=== PATIENT | male | born 1985 | race Caucasian/White ===

== ENCOUNTER 2022-09-29 15:24 | Outpatient (CLI) | payer OTHER, SELFPAY ==
[2022-09-29 17:32] LABS: Albumin* 4.7 g/dL (3.3-5.0); Chloride* 107 mmol/L (96-114)
[2022-09-29 17:33] LABS: Potassium* 4.4 mmol/L (3.6-5.1); Sodium* 142 mmol/L (135-149)
[2022-09-29 17:35] LABS: Alkaline Phosphatase* 66 U/L (40-150); Aspartate Amino Transferase* 32 U/L (12-35); Bilirubin Total* 0.5 mg/dL (0.1-1.5); Carbon Dioxide* 26 mmol/L (20-32); Creatinine* 0.8 mg/dL (0.5-1.5); Estimated Glomerular Filt Rate 116 ml/min; Total Protein* 7.5 g/dL (6.0-8.3)
[2022-09-29 17:36] LABS: Alanine Aminotransferase* 41 U/L (4-50); Blood Urea Nitrogen* 15 mg/dL (5-24); Glucose* 85 mg/dL (60-115); Lipase* 142 U/L (23-300)
== END 2022-09-29 15:25 | disposition home or self-care (01) ==
PROVIDERS: PCP Family Medicine; Visit Provider Family Medicine
DX: R19.7 Diarrhea, unspecified (principal)
CPT/HCPCS: 80053; 83516; 83690; 84443

== ENCOUNTER 2022-10-08 09:02 | Outpatient (CLI) | payer OTHER, SELFPAY ==
[2022-10-08 18:41] LABS: C.Difficile Negative (Negative); CDIFFEPI 027 PRESUMPTIVE NEGATIVE (Negative)
== END 2022-10-08 09:03 | disposition home or self-care (01) ==
PROVIDERS: PCP Family Medicine; Visit Provider Family Medicine
DX: R19.7 Diarrhea, unspecified (principal)
CPT/HCPCS: 87045; 87046; 87077; 87427; 87493

== ENCOUNTER 2024-03-21 09:53 | Outpatient (CLI) | payer OTHER, SELFPAY ==
--- OUTSIDE RECORDS SUMMARY | 2024-03-21 09:56 | XMS_ITS | Encounter Summary ---
Author Organization [facility] Address [address] [place] [address] Care Team Providers Care Meat Press Operator Name Role Phone Porfirio Bailey MD Primary Care Provider Yassine Brooks MD Primary Care Provider [phone] Quinn Greer MD Unavailable Quinn Greer MD Unavailable Encounter Details Date Type Department Care Team (Late st Contact Info) Description 02/08/2013 [facility] [address] [phone] [facility] Social History Tobacco Use Types Packs/Day Years Used Date Smoking Tobacco: Former Cigarettes 1 5 0 08/31/1997 - 08/31/2002 Smokeless Tobacco: Never Alcohol Use Standard Drinks/Week Comments Yes 0 (1 standard drink = 0.6 oz pur e alcohol) 1 beer per day Sex and Gender Information Value Date Recorded Sex Assigned at Not on file Gender Identity Not on file Sexual Orientation Not on file documented as of this encounter Plan of Treatment Not on file documented as of this encounter Visit Diagnoses Not on filedocumented in this encounter Care Teams Meat Press Operator Relationship Specialty Start Date End Date Porfirio Bailey MD [facility] [address] PCP - General 08/29/08 10/29/14 [place] [address] [place] [address] PCP - General Family Practice 10/30/14 [place] [address] [place] [address] PCP - Assigned PCP 11/01/17 10/19/18 [place] [address] [place] [address] Assigned PCP 11/01/17 10/15/19 documented as of this encounter
--- OUTSIDE RECORDS SUMMARY | 2024-03-21 09:56 | XMS_ITS | Clinical Summary ---
Author Organization [facility] Address [place], [place] [address] Care Team Providers Care Training And Development Officer Name Role Phone Gerry Harden MD Primary Care Provider [phone] Allergies No known active allergies Medications Medication Sig Dispensed Refills Start Date End Date Status allopurinoL (ZYLOPRIM) 300 mg tablet Take 300 mg by mouth once daily. 03/28/2022 Active indomethacin (INDOCIN) 50 mg capsule TAKE 1 CAP (50 MG) BY MOUTH TIMES DAILY FOR 10 DAYS 12/31/2021 Active PARoxetine (PAXIL) 20 mg tablet TAKE 1 TABLET BY MOUTH DAILY. DUE FOR RECHECK IN [facility]IN[facility] CALL TO MAKE A APPOINTMENT 10/13/2021 Active Social History Tobacco Use Types Packs/Day Years Used Date Smoking Tobacco: Never Assessed Sex and Gender Information Value Date Recorded Sex Assigned at Not on file Gender Identity Not on file Sexual Orientation Not on file Last Filed Vital Signs Vital Sign Reading Time Taken Comments Blood Pressure 142/84 06/09/2022 5:57 PM CDT Pulse 72 06/09/2022 5:57 PM CDT Temperature 36.3 ??C (97.4 ??F) 06/09/2022 5:57 PM CD T Respiratory Rate 18 06/09/2022 5:57 PM CDT Oxygen Saturation 96% 06/09/2022 5:57 PM CDT Inhaled Oxygen Concentration - - Weight 108.4 kg (239 lb) 06/09/2022 5:57 PM CDT Height - - Body Mass Index - - Plan of Treatment Not on file Care Teams Training And Development Officer Relationship Specialty Start Date End Date Gerry Harden MD PCP - General Family Practice 06/09/22
--- OUTSIDE RECORDS SUMMARY | 2024-03-21 09:56 | XMS_ITS | Encounter Summary ---
Author Organization [facility] Address [address] [place] [address] Care Team Providers Care Space Planner Name Role Phone Porfirio Bailey MD Primary Care Provider Yassine Brooks MD Primary Care Provider [phone] Quinn Greer MD Unavailable Quinn Greer MD Unavailable Encounter Details Date Type Department Care Team (Late st Contact Info) Description 08/12/2011 [facility] [address] [phone] [facility] Social History Tobacco Use Types Packs/Day Years [...] on filedocumented in this encounter Care Teams Space Planner Relationship Specialty Start Date End Date Porfirio Bailey MD [facility] [place] [address] PCP - General 08/29/08 10/29/14 [place] [address] [place] [address] PCP - General Family Practice 10/30/14 [place] [address] [place] [address] PCP - Assigned PCP 11/01/17 10/19/18 [place] [address] [place] [address] Assigned PCP 11/01/17 10/15/19 documented as of this encounter
--- OUTSIDE RECORDS SUMMARY | 2024-03-21 09:56 | XMS_ITS | Referral Summary ---
Author Organization [facility] Address [address] [facility] [place] [address] Care Team Providers Care Equipment Operator/Laborer/Supervisor Name Role Phone Yassine Brooks MD Primary Care Provider [phone] Allergies No known active allergies Medications Medication Sig Dispensed Refills Start Date End Date Status naproxen sodium (ALEVE) 220 MG tabletIndications:[facility] pain of left knee Take 2 tablets (440 mg) by mouth 2 times daily (with meals) 180 tablet 3 10/09/2016 Active acetaminophen (TYLENOL) 500 MG tabletIndications:[facility] pain of left knee Take 2 tablets (1,000 mg) by mouth every 6 hours as needed for mild pain 100 tablet 10/09/2016 Active PARoxetine (PAXIL) 20 MG tabletIndications:Ge neralized anxiety disorder,Dysthymia TAKE ONE TABLET BY MOUTH EVERY DAY 30 tablet 01/04/2018 Active Active Problems Problem Noted Date Diagnosed Date Dysthymia 03/26/2011 CARDIOVASCULAR SCREENING; LDL GOAL LESS THAN 160 06/16/2010 Generalized anxiety disorder 05/09/2008 Overview: Diagnosis updated by automated process. Provider to review and confirm. Acute reaction to stress 05/06/2006 Overview: Problem list name updated by automated process. Provider to review Immunizations Name Administration Dates Next Due HepB 03/14/1998,05/18/1997,03/11/1997 MMR 01/14/1996 TD,PF 7+ (Tenivac) 01/14/1996 TDAP Vaccine (Adacel) 04/30/2010 Social History Tobacco Use Types Packs/Day Years Used Date Smoking Tobacco: Former Cigarettes 1 5 0 08/31/1997 - 08/31/2002 Smokeless Tobacco: Never Alcohol Use Standard Drinks/Week Comments Yes 5.8 (1 standard drink = 0.6 oz p ure alcohol) 1 beer per day Adolescent Education Answer Date Record ed Getting School Help Needed Not on file 05/10 Sex and Gender Information Value Date Recorded Sex Assigned at Not on file Gender Identity Not on file Sexual Orientation Not on file Last Filed Vital Signs Vital Sign Reading Time Taken Comments Blood Pressure 100/80 10/09/2016 9:50 AM DBA DEVELOPER Pulse 83 10/09/2016 9:50 AM DBA DEVELOPER Temperature 36.9 ??C (98.4 ??F) 10/09/2016 9:50 AM CS T Respiratory Rate 14 02/05/2010 10:22 AM CDT Oxygen Saturation 97% 10/09/2016 9:50 AM DBA DEVELOPER Inhaled Oxygen Concentration - - Weight 111.1 kg (245 lb) 10/09/2016 9:50 AM DBA DEVELOPER Height 177.8 cm (5' 10) 10/09/2016 9:50 AM DBA DEVELOPER Body Mass Index 35.15 10/09/2016 9:50 AM DBA DEVELOPER Plan of Treatment Not on file Advance Directives For more information, please contact: [phone] * No Code Status (Latest Code Status on File) Date Activated Date Inactivated Comments 02/08/2004 6:51 AM 02/08/2004 6:51 AM Care Teams Equipment Operator/Laborer/Supervisor Relationship Specialty Start Date End Date Yassine Brooks MD [address] [place] [id number] PCP - General Family Practice 10/30/14
--- OUTSIDE RECORDS SUMMARY | 2024-03-21 09:56 | XMS_ITS | Clinical Summary ---
Author Organization [facility] Address [address] [place] [address] Care Team Providers Care Apprentice Electrician Name Role Phone Nomi Mejia MD Primary Care Provider [phone] Source Comments You are receiving this document as you are listed as the primary care provider,follow-up provider, or the patient has been referred to you for consultation.This is in compliance with the Medicare andMedicaid EHR Incentive Program,which states Providers who transition their patient to another setting of careor provider of care or refers their patient to another provider of care shouldprovide summary care record for each transition of care or referral. [facility] Allergies No known active allergies Medications Medication Sig Dispensed Refills Start Date End Date Status propranolol (INDERAL) 20 MG tablet One to two tabs one hour before presentation as needed. 60 Tab 11 04/23/2016 Active PARoxetine (PAXIL) 20 MG tablet TAKE 1 TABLET BY MOUTH EVERY MORNING 14 Tab 08/06/2017 Active indomethacin (INDOCIN) 25 MG capsule TAKE 1 TO 2 CAPSULES BY MOUTH THREE TIMES DAILY WITH MEALS 30 Cap 08/06/2017 Active hydrocortisone (HYDROCORTISONE 25 MG) 25 MG suppository Insert 1 Suppository rectally two times a day. 12 Suppository 1 09/13/2020 Active Active Problems No known active problems Immunizations Name Administration Dates Next Due Flu Vac (3+ yrs) 05/29/2014,06/16/2013 Influenza (Flucelvax), Preserv Free QIV 06/13/20 18 Influenza IIV4 (Quadrivalent) 0.5mL (93659) 03/18,08/08/2019 TDAP (ADACEL) 04/30/2010 Social History Tobacco Use Types Packs/Day Years Used Date Smoking Tobacco: Never Smokeless Tobacco: Never Alcohol Use Standard Drinks/Week Comments Yes 2 (1 standard drink = 0.6 oz pur e alcohol) 2 drinks per week PHQ-2 Answer Date Recorded PHQ-2 Score 0 09/13/2020 Sex and Gender Information Value Date Recorded Sex Assigned at Not on file Gender Identity Not on file Sexual Orientation Not on file Last Filed Vital Signs Vital Sign Reading Time Taken Comments Blood Pressure 122/84 09/13/2020 5:47 PM ART CONSERVATOR Pulse 83 09/13/2020 5:47 PM ART CONSERVATOR Temperature 36.8 ??C (98.3 ??F) 05/18/2019 9:31 AM CD T Respiratory Rate 20 03/22/2011 8:13 AM CDT Oxygen Saturation - - Inhaled Oxygen Concentration - - Weight 96.6 kg (213 lb) 09/13/2020 5:47 PM ART CONSERVATOR Height 179.7 cm (5' 10.75) 04/23/2016 7:42 AM C DT Body Mass Index 29.92 04/23/2016 7:42 AM CDT Plan of Treatment Health Maintenance Due Date Last Done Comments Hep C Screening (Preventive Services) 1984 HIV Screening (Preventive Services) 2000 HepB (1) 01/05/2003 Cholesterol 04/23/2021 04/23/2016 Adult Preventive Visit 09/13/2022 09/13/2020, 2015 COVID-19 Vaccine ( season) 2023 12/05/2020, 11/08/2020 Influenza (#1) 2024 04/08/2020, 12/10/2018, 06/13/2018, Additional history exists DTaP/Tdap/Td (3 - Tdap) 01/01/2032 12/31/2021, 04/30 Zoster/Shingles (1 of 2) 01/05/2034 HPV Vaccine Aged Out No longer eligi ble based on patient's age to complete this topic HepA Aged Out No longer eligi ble based on patient's age to complete this topic Hib Aged Out No longer eligi ble based on patient's age to complete this topic IPV (Polio) Aged Out No longer eligi ble based on patient's age to complete this topic MCV4 Aged Out No longer eligi ble based on patient's age to complete this topic Pneumococcal Aged Out No longer eligi ble based on patient's age to complete this topic Procedures Procedure Name Priority Date/Time Associated Diagnosis Comments LIPID PANEL & DIRECT LDL (IF NEEDED) Routine 04/23/2016 8:15 AM CDT Screening for hyperlipidemia from Last 3 Months or Most Recently Relevant to Health Maintenance Results * (ABNORMAL) Lipid Panel - LDLD If Trig High (04/23/2016 8:15 AM CDT) Cholesterol 204(H) 0 - 199 mg/dL PN SOFT Triglycerides 417(H) 4 - 149 mg/dL PN SOFT HDL Cholesterol 32(L) >39 mg/dL PN SOFT Cholesterol/HDL Ratio Screen 6.4 PN SOFT Hours Fasting 12.0 PN SOFT 04/23/2016 8:15 AM CDT 04/23/2016 12:41 PM CDT Narrative PN SOFT - 04/23/2016 3:11 PM CDT Performed at [facility], [address] [place] [address] CLIA number [id number] Nomi Mjeia MD LAB_1 PN SOFT [address] [place] [address] from Last 3 Months or Most Recently Relevant to Health Maintenance Care Teams Apprentice Electrician Relationship Specialty Start Date End Date Nomi Mejia MD [address] [place] [address] PCP - General Family Practice 04/09/16
--- OUTSIDE RECORDS SUMMARY | 2024-03-21 09:56 | XMS_ITS | Encounter Summary ---
Author Organization [facility] Address [address] [place] [address] Care Team Providers Care Manager Spanish Name Role Phone Porfirio Bailey MD Primary Care Provider Yassine Brooks MD Primary Care Provider [phone] Quinn Greer MD Unavailable Quinn Greer MD Unavailable Encounter Details Date Type Department Care Team (Late st Contact Info) Description 10/16/2014 [facility] [address] [phone] Whitney Mohamud RN Social History Tobacco Use Types Packs/Day Years [...] on filedocumented in this encounter Care Teams Manager Spanish Relationship Specialty Start Date End Date Porfirio Bailey MD [facility] [facility] [address] PCP - General 08/29/08 10/29/14 [place] [address] [place] [address] PCP - General Family Practice 10/30/14 [place] [address] [place] [address] PCP - Assigned PCP 11/01/17 10/19/18 [place] [address] [place] [address] Assigned PCP 11/01/17 10/15/19 documented as of this encounter
--- OUTSIDE RECORDS SUMMARY | 2024-03-21 09:56 | XMS_ITS | Clinical Summary ---
Author Organization [facility] Address [address] [facility] [place] [address] Care Team Providers Care Director Of Instruction Name Role Phone Yassine Brooks MD Primary Care Provider [phone] Allergies No known active allergies Medications Medication Sig Dispensed Refills Start Date End Date Status naproxen sodium (ALEVE) 220 MG tabletIndications:Ac three affiliated pain of left knee Take 2 tablets (440 mg) by mouth 2 times daily (with meals) 180 tablet 3 10/09/2016 Active acetaminophen (TYLENOL) 500 MG tabletIndications:Ac three affiliated pain of left knee Take 2 tablets [...] 7+ (Tenivac) 01/14/1996 TDAP Vaccine (Adacel) 04/30/2010 Family History Medical History Relation Comments Coronary Artery Disease Father stent Cancer Paternal Grandfather Skin Diabetes No family hx of Relation Status Comments Brother 1 Alive Brother 2 Alive Brother 3 Alive Father Alive Mother Alive Paternal Grandfather Social History Tobacco Use Types Packs/Day Years [...] Comments Blood Pressure 100/80 10/09/2016 9:50 AM BEAUTY SALES CONSULTANT Pulse 83 10/09/2016 9:50 AM BEAUTY SALES CONSULTANT Temperature 36.9 ??C (98.4 ??F) 10/09/2016 9:50 AM CS T Respiratory Rate 14 02/05/2010 10:22 AM CDT Oxygen Saturation 97% 10/09/2016 9:50 AM BEAUTY SALES CONSULTANT Inhaled Oxygen Concentration - - Weight 111.1 kg (245 lb) 10/09/2016 9:50 AM BEAUTY SALES CONSULTANT Height 177.8 cm (5' 10) 10/09/2016 9:50 AM BEAUTY SALES CONSULTANT Body Mass Index 35.15 10/09/2016 9:50 AM BEAUTY SALES CONSULTANT Plan of Treatment Not on file Advance Directives For more information, please contact: [phone] * No Code Status (Latest Code Status on File) Date Activated Date Inactivated Comments 02/08/2004 6:51 AM 02/08/2004 6:51 AM Care Teams Director Of Instruction Relationship Specialty Start Date End Date Yassine Brooks MD [address] [place] [address] PCP - General Family Practice 10/30/14
== END 2024-03-21 09:54 | disposition home or self-care (01) ==
PROVIDERS: PCP Family Medicine; Visit Provider Family Medicine
DX: Z13.228 Encounter for screening for other metabolic disorders (principal); Z13.220 Encounter for screening for lipoid disorders
CPT/HCPCS: 80048; 80061

== ENCOUNTER 2025-07-21 11:21 | Outpatient (CLI) | payer OTHER, SELFPAY | END 2025-07-21 11:22 | disposition home or self-care (01) | PROVIDERS: PCP Family Medicine; Visit Provider Family Medicine | DX: Z00.00 Encounter for general adult medical examination without abnormal findings (principal); Z83.3 Family history of diabetes mellitus | CPT/HCPCS: 80048; 80061 ==